=== PATIENT | female | born 1950 | race Caucasian/White ===

== ENCOUNTER → 2019-02-17 | Outpatient (CLI) | payer MEDICARE, OTHER ==
[~2019-02-17] MED LIST: AMLO5 PO; Aspir-Low81 MG PO; CHLO25 PO; DICL75ER PO; DULO60 PO; EPIN.3I IM; Flonase 0.05% N16 GM; GABA600 PO; LEVSOD100 PO; LISI20 PO; METO100ER PO; OMEPRAZOLE MAGN20 MG PO; Omeprazole20 M1 PO; PRAMIPEXOLE DIHY1 MG PO
== END | disposition home or self-care (01) ==
LOC: LAB EV 17:26 → LAB SHORT 17:26
DX: N12 Tubulo-interstitial nephritis, not specified as acute or chronic (principal)
CPT/HCPCS: 87077; 87086; 87186

== ENCOUNTER 2020-05-14 08:02 | Day surgery (SDC) | payer MEDICARE, OTHER ==
[~2020-05-14 08:02] MED LIST changes: +AMLO10 PO; -AMLO5 PO
[2020-05-14] MEDS ORDERED: LOVASTATIN20 MG PO (14:01)
--- NOTE | 2020-05-14 14:08 | NUR ---
PT RESTING IN SUPINE POSITION LEFT ANTEGRADE FEMORAL ARTERIAL SITES APPEAR SOFT NON TENDER WITH NO BLEEDING, OOZING, OR PAIN NOTED. TR BAND ON LEFT WRIST WITH AIR IN AND ARM BOARD ON SITE ALSO SOFT WITH NO BLEEDING OR OOZING. LEFT POST TIBIAL ARTERIAL SITE WITH DANNA PAD ON WITH CLEAR TEGADERM, DRESSING INTACT. PT APPEARS TO BE RESTING WITH EYES CLOSED, SNORING. NO ACUTE DISTRESS NOTED. CALL LIGHT IN REACH. VSS. WILL CONTINUE TO MONITOR.
--- NOTE | 2020-05-14 15:30 | NUR ---
PATIENT AWAKE. LEFT GROIN SITE SOFT AND NONTENDER. LEFT WRIST WITH TR BAND IN PLACE. 2CC OF AIR REMOVED. SITE REMAINS CLEAR. FINGERS ARE COOL, BUT WITH GOOD SENSATION. LEFT ANKLE DRESSING INTACT. SOFT AND NONTENDER.
--- NOTE | 2020-05-14 16:12 | NUR ---
HOB OF RAISED TO 90 DEGREES, LEFT GROIN SITE REMAINS SOFT NON TENDER, TR BAND FULLY DEFLATED. PT C/O 4/ BACK PAIN. MEDICATED PER ORDERS. WILL CONTINUE TO MONITOR.
--- NOTE | 2020-05-14 16:26 | NUR ---
PATIENT UP TO REST ROOM WITH STAND BY ASSIST.
--- NOTE | 2020-05-14 16:50 | NUR ---
PATIENT DRESSED. ARTERIAL SITES ASSESSED AND STABLE. IV SITE DCED WITH CATHETER INTACT.
--- NOTE | 2020-05-14 17:02 | NUR ---
PT VERBALIZED UNDERSTANDING OF D/C INSTRUCTIONS, PAPERWORK PROVIDED IN FOLDER. PT RIDE ARRIVES TO DRIVE HER HOME, TAKEN OUT TO PRIVATE VEHICLE VIA W/C. NO ACUTE DISTRESS NOTED. ENCOURAGED TO FOLLOW UP WITH PROVIDER SCHEDULED.
== END 2020-05-14 12:00 | disposition home or self-care (01) ==
LOC: MHTC 08:02
DX: I70.223 Atherosclerosis of native arteries of extremities with rest pain, bilateral legs (principal); I10 Essential (primary) hypertension; E78.00 Pure hypercholesterolemia, unspecified; F41.9 Anxiety disorder, unspecified; E78.5 Hyperlipidemia, unspecified; E03.9 Hypothyroidism, unspecified; K21.9 Gastro-esophageal reflux disease without esophagitis; F17.210 Nicotine dependence, cigarettes, uncomplicated; Z88.8 Allergy status to other drugs, medicaments and biological substances; Z91.018 Allergy to other foods; Z79.899 Other long term (current) drug therapy
CPT/HCPCS: 36200; 37224; 37228; 75625; 75710; 75716; 76937; 85347; 99152; 99153; C1725; C1757; C1769; C1887; C1894; C2623; C9764; J1644; J2250; J3010; J7030; J7040; Q9967

== ENCOUNTER 2020-05-26 18:44 | Emergency (ER) | payer MEDICARE, OTHER ==
[~2020-05-26] VITALS: Ht 157.5 cm; Wt 72.6 kg
[~2020-05-26 18:44] MED LIST changes: +LOVASTATIN20 MG PO
[2020-05-26 19:43] LABS: BASOPHILS ABSOLUTE AUTO 0.05 K/mm3 (0.00-0.23); BASOPHILS PERCENT AUTO 1 % (0-2); EOSINOPHILS ABSOLUTE AUTO 0.55 K/mm3 (0.00-0.68); EOSINOPHILS PERCENT AUTO 7 % (0-6); Hematocrit 43.4 % (33.0-51.0); IMMATURE GRAN ABSOLUTE AUTO 0.03 K/mm3 (0.00-0.10); IMMATURE GRAN PERCENT AUTO 0 % (0-1); LYMPHOCYTES ABSOLUTE AUTO 2.67 K/mm3 (0.84-5.20); LYMPHOCYTES PERCENT AUTO 34 % (21-46); MONOCYTES ABSOLUTE AUTO 0.56 K/mm3 (0.16-1.47); MONOCYTES PERCENT AUTO 7 % (4-13); Mean Corpuscular HGB 27.8 pg (26.0-34.0); Mean Corpuscular HGB Conc 32.3 g/dL (31.5-36.5); Mean Corpuscular Volume 86 fL (80-100); Mean Platelet Volume 8.8 fL (9.1-12.4); NEUTROPHILS ABSOLUTE AUTO 3.97 K/mm3 (1.96-9.15); NEUTROPHILS PERCENT AUTO 51 % (41-73); Platelet Count 313 K/mm3 (150-400); RDW Coefficient Variation 13.4 % (11.7-14.2); RDW Standard Deviation 41.8 fL (35.1-46.3); Red Blood Cell Count 5.03 M/mm3 (3.80-5.20); White Blood Cell Count 7.83 K/mm3 (4.00-11.30)
[2020-05-26 20:03] LABS: Alanine Aminotransfer (ALT/SGP 30 U/L (12-78); Albumin, Blood 3.6 g/dL (3.4-5.0); Albumin/Globulin Ratio 0.8 (0.8-1.8); Alk Phos 151 U/L (50-136); Anion Gap 8 mmol/L (6-16); Aspartate Aminotrans (AST/SGOT 31 U/L (12-37); Bilirubin, Total 0.4 mg/dL (0.1-1.0); Blood Urea Nitrogen 8 mg/dL (8-24); Bun/Creatinine Ratio 12.7 (12.0-20.0); CO2, Blood 28 mmol/L (21-32); Calcium, Blood 8.6 mg/dL (8.5-10.1); Chloride, Blood 102 mmol/L (98-108); Creatinine, Blood 0.63 mg/dL (0.40-1.00); Globulin, Blood 4.3 g/dL (2.2-4.0); Glomerular Filtration Rate >60 (60-); Glucose, Blood 91 mg/dL (70-99); Sodium, Blood 138 mmol/L (136-145); Total Protein, Blood 7.9 g/dL (6.4-8.2); Troponin I <0.015 ng/mL (0.000-0.040)
[2020-05-26] MEDS ORDERED: Zithromax250 MG PO ×2 (22:02→22:03)
== END 2020-05-26 22:04 | disposition home or self-care (01) ==
LOC: ER 18:44
PROVIDERS: Physician Assistant
DX: J44.1 Chronic obstructive pulmonary disease with (acute) exacerbation (principal); I10 Essential (primary) hypertension; E78.5 Hyperlipidemia, unspecified; J44.9 Chronic obstructive pulmonary disease, unspecified; E03.9 Hypothyroidism, unspecified; K21.9 Gastro-esophageal reflux disease without esophagitis; F17.200 Nicotine dependence, unspecified, uncomplicated; Z88.8 Allergy status to other drugs, medicaments and biological substances; Z79.899 Other long term (current) drug therapy
CPT/HCPCS: 36415; 71045; 80053; 84484; 85025; 93005; 93010; 94640; 96374; 96375; 99285-25; J1100; J2405

== ENCOUNTER 2020-07-14 09:52 | Day surgery (SDC) | payer MEDICARE, OTHER ==
[~2020-07-14] VITALS: Ht 160 cm; Wt 70.5 kg
[~2020-07-14 09:52] MED LIST changes: +EUTHYROX125 MCG PO; -LEVSOD100 PO; +Zithromax250 MG PO
[2020-07-14] MEDS ORDERED: ALBU8HFA2 INH (10:46)
[2020-07-14] MEDS ORDERED: TRAM50 PO (10:46)
[2020-07-14] MEDS ORDERED: Aspir 8181 MG PO (10:47)
--- NOTE | 2020-07-14 13:50 | NUR ---
PATIENT UP WALKING/PACING IN THE RECOVERY ROOM. AWAITING PROCEDURE TO START.
--- NOTE | 2020-07-14 16:32 | NUR ---
1610 PATIENT RETURNED FORM THE [facility] WITH RIGHT FOOT HEMOSTASIS OF THE RDP AND RPT. DANNA PAD AND TEGADERM ON EACH SITE. NO PAIN NOTED FROM THE PATIENT BUT THE RIGHT FOOT IS TENDER TO TOUCH. NOTIFIED EMETERIO (SIGNIFICANT OTHER) PER THE PATIENTS REQUEST THAT SHE WAS OUT OF PROCEDURE AND POTENTIAL DISCAHRGE TIME IS 1814. PATIENT IS SLEEPY. OXYGEN SAT DIPPING TO 89%, 2lbnc RESTARTED AND SIDE RAILS UP X TWO AND CALL LIGHT IN REACH. MONITOR IN PLACE. VVS.
--- NOTE | 2020-07-14 16:35 | NUR ---
PATIENT AWAKE AND SITTING UP IN THE BED. RIGHT FOOT SITES RPT ADN RDP STABLE. SOFT AND NO HEMATOMA NOTED. DINNER TRAY SERVED. PATIENT FEEDING SELF.
--- NOTE | 2020-07-14 18:18 | NUR ---
7491 PATIENT FINISHED WITH MEAL TRAY, ATE 100% SITTING UP IN THE BED.NO PAIN NOTED. DOPPLER PULSES +1 TO RPT AND RDP. DRESSING WITH SMALL AMOUNT OF BLOOD NOTED. NO FURTHER BLEEDING
--- NOTE | 2020-07-14 18:19 | NUR ---
1750 PATIENT UP AND WLAKING TO THE RESTROOM WITH WALKER. C/O SORENESS TO THE RIGHT FOOT BUT ABLE TO WALK WITHOUT DIFFICULTY. PATIENT VOIDED AND BACK TOT HE BEDSIDE. PIV TO THE LEFT HAND DISCONTINUED AND PRESSURE DRESSING APPLIED. PATIENT DRESSED SELF AND GATHERED ALL BELONGINGS. WHEELCHAIR TO THE DIAMOND ENTRANCE AND MET SIGNIFICANT OTHER. REVIEWED DISCHARGE INSTRUCTIONS WITH PATIENT AND CAREGIVER. PATIENT VERBALIZED UNDERSTANDING OF INSTRUCTIONS AND WILL CALL FOR FOLLOW UP APPOINTMENT WITH DR. MIRANDA OFFICE IN THE MORNING.
== END 2020-07-14 18:00 | disposition home or self-care (01) ==
LOC: MHTC 09:52
DX: I70.211 Atherosclerosis of native arteries of extremities with intermittent claudication, right leg (principal); I10 Essential (primary) hypertension; F41.9 Anxiety disorder, unspecified; E03.9 Hypothyroidism, unspecified; E78.5 Hyperlipidemia, unspecified; J44.9 Chronic obstructive pulmonary disease, unspecified; G89.29 Other chronic pain; M54.9 Dorsalgia, unspecified; F32.9 Major depressive disorder, single episode, unspecified; G25.81 Restless legs syndrome; K21.9 Gastro-esophageal reflux disease without esophagitis; G62.9 Polyneuropathy, unspecified; F17.210 Nicotine dependence, cigarettes, uncomplicated; Z91.018 Allergy to other foods; Z79.82 Long term (current) use of aspirin; Z79.51 Long term (current) use of inhaled steroids; Z79.899 Other long term (current) drug therapy; Z88.8 Allergy status to other drugs, medicaments and biological substances
CPT/HCPCS: 37228; 37232; 75710; 75774; 76937; 99152; 99153; C1725; C1769; C1887; C1894; J1644; J2250; J3010; J7030; J7040; J7050; Q9967

== ENCOUNTER 2023-02-13 12:19 | Emergency (ER) | payer MEDICARE, OTHER ==
[~2023-02-13] VITALS: Ht 157.5 cm; Wt 60.8 kg
[~2023-02-13 12:19] MED LIST changes: +ALBU8HFA2 INH; +Aspir 8181 MG PO; +TRAM50 PO
[2023-02-13 13:07] LABS: BASOPHILS ABSOLUTE AUTO 0.02 K/mm3 (0.00-0.23); BASOPHILS PERCENT AUTO 0 % (0-2); EOSINOPHILS ABSOLUTE AUTO 0.16 K/mm3 (0.00-0.68); EOSINOPHILS PERCENT AUTO 2 % (0-6); Hemoglobin 8.9 g/dL (11.5-16.0); IMMATURE GRAN ABSOLUTE AUTO 0.03 K/mm3 (0.00-0.10); IMMATURE GRAN PERCENT AUTO 0 % (0-1); LYMPHOCYTES PERCENT AUTO 26 % (21-46); MONOCYTES ABSOLUTE AUTO 0.38 K/mm3 (0.16-1.47); MONOCYTES PERCENT AUTO 5 % (4-13); Mean Corpuscular Volume 88 fL (80-100); Mean Platelet Volume 10.6 fL (9.1-12.4); NEUTROPHILS ABSOLUTE AUTO 5.11 K/mm3 (1.96-9.15); NEUTROPHILS PERCENT AUTO 66 % (41-73); Platelet Count 255 K/mm3 (150-400); RDW Coefficient Variation 13.4 % (11.7-14.2); RDW Standard Deviation 43.2 fL (35.1-46.3); Red Blood Cell Count 3.07 M/mm3 (3.80-5.20)
[2023-02-13 13:24] LABS: Albumin, Blood 3.3 g/dL (3.4-5.0); Bilirubin, Total 0.4 mg/dL (0.1-1.0); Bun/Creatinine Ratio 64.1 (12.0-20.0); Calcium, Blood 8.7 mg/dL (8.5-10.1); Creatinine, Blood 0.56 mg/dL (0.40-1.00); Globulin, Blood 3.3 g/dL (2.2-4.0); Potassium, Blood 3.6 mmol/L (3.5-5.5); Total Protein, Blood 6.6 g/dL (6.4-8.2)
[2023-02-13 13:32] LABS: International Normalized Ratio 0.99; Prothrombin Time Results 10.4 Sec (9.7-11.5)
[2023-02-13 16:45] VITALS: BP 106/71
== END 2023-02-13 17:00 | disposition short-term general hospital (02) ==
LOC: ER 12:19
PROVIDERS: Emergency Medicine; Physician Assistant
DX: K92.2 Gastrointestinal hemorrhage, unspecified (principal); D50.0 Iron deficiency anemia secondary to blood loss (chronic); E78.5 Hyperlipidemia, unspecified; Z85.3 Personal history of malignant neoplasm of breast; I10 Essential (primary) hypertension; J44.9 Chronic obstructive pulmonary disease, unspecified; E03.9 Hypothyroidism, unspecified; K21.9 Gastro-esophageal reflux disease without esophagitis; Z88.8 Allergy status to other drugs, medicaments and biological substances; Z91.018 Allergy to other foods; Z79.899 Other long term (current) drug therapy; Z79.82 Long term (current) use of aspirin
CPT/HCPCS: 74174; 80053; 82140; 82272; 83690; 85025; 85610; 86850; 86900; 86901; 96365-59; 96366; 96368; 96375-59; 96376-59; 99285-25; C9113; G0480; J0696; J2354; J2405; J7030; J7050; Q9967

== ENCOUNTER 2023-03-27 06:26 | Emergency (ER) | payer MEDICARE, OTHER ==
[~2023-03-27] VITALS: Ht 162.6 cm; Wt 63.5 kg
[2023-03-27 06:54] LABS: BASOPHILS ABSOLUTE AUTO 0.03 K/mm3 (0.00-0.23); BASOPHILS PERCENT AUTO 0 % (0-2); EOSINOPHILS ABSOLUTE AUTO 0.41 K/mm3 (0.00-0.68); EOSINOPHILS PERCENT AUTO 4 % (0-6); Hematocrit 27.4 % (33.0-51.0); IMMATURE GRAN ABSOLUTE AUTO 0.05 K/mm3 (0.00-0.10); IMMATURE GRAN PERCENT AUTO 1 % (0-1); LYMPHOCYTES ABSOLUTE AUTO 1.25 K/mm3 (0.84-5.20); LYMPHOCYTES PERCENT AUTO 13 % (21-46); MONOCYTES ABSOLUTE AUTO 0.64 K/mm3 (0.16-1.47); MONOCYTES PERCENT AUTO 7 % (4-13); Mean Corpuscular HGB 25.4 pg (26.0-34.0); Mean Corpuscular HGB Conc 32.8 g/dL (31.5-36.5); Mean Corpuscular Volume 77 fL (80-100); Mean Platelet Volume 9.4 fL (9.1-12.4); NEUTROPHILS ABSOLUTE AUTO 7.53 K/mm3 (1.96-9.15); NEUTROPHILS PERCENT AUTO 76 % (41-73); Platelet Count 312 K/mm3 (150-400); RDW Coefficient Variation 17.1 % (11.7-14.2); RDW Standard Deviation 48.5 fL (35.1-46.3); Red Blood Cell Count 3.54 M/mm3 (3.80-5.20); White Blood Cell Count 9.91 K/mm3 (4.00-11.30)
[2023-03-27 07:16] LABS: Albumin, Blood 3.2 g/dL (3.4-5.0); Albumin/Globulin Ratio 0.8 (0.8-1.8); Bilirubin, Total 0.4 mg/dL (0.1-1.0); Calcium, Blood 8.4 mg/dL (8.5-10.1); Creatinine, Blood 0.53 mg/dL (0.40-1.00); Total Protein, Blood 7.2 g/dL (6.4-8.2)
[2023-03-27] MEDS ORDERED: PRED20 PO (08:58)
[2023-03-27] MEDS ORDERED: AZIT250 PO (08:58)
[2023-03-27 09:05] VITALS: BP 145/80
[2023-03-28] MEDS ORDERED: ALBU90OI INH (22:32)
[2023-03-28] MEDS ORDERED: Prednisone50 MG PO (22:32)
[2023-03-28] MEDS ORDERED: Vibramycin100 MG PO (22:32)
== END 2023-03-27 09:06 | disposition home or self-care (01) ==
LOC: ER 06:26
PROVIDERS: Emergency Medicine
DX: J44.1 Chronic obstructive pulmonary disease with (acute) exacerbation (principal); E78.5 Hyperlipidemia, unspecified; I10 Essential (primary) hypertension; E03.9 Hypothyroidism, unspecified; K21.9 Gastro-esophageal reflux disease without esophagitis; Z88.8 Allergy status to other drugs, medicaments and biological substances; Z91.048 Other nonmedicinal substance allergy status; Z85.3 Personal history of malignant neoplasm of breast; Z79.82 Long term (current) use of aspirin; Z79.899 Other long term (current) drug therapy
CPT/HCPCS: 71045; 80053; 84484; 85025; 93005; 93010; 94640; 94644; 94664; 96374; 96375; 99285-25; J1885; J2405; J2930

== ENCOUNTER 2023-03-28 15:36 | Emergency (ER) | payer MEDICARE, OTHER ==
[~2023-03-28] VITALS: Ht 157.5 cm; Wt 59.4 kg
[~2023-03-28 15:36] MED LIST changes: +AZIT250 PO; +PRED20 PO
[2023-03-28 16:02] LABS: BASOPHILS ABSOLUTE AUTO 0.03 K/mm3 (0.00-0.23); BASOPHILS PERCENT AUTO 0 % (0-2); EOSINOPHILS ABSOLUTE AUTO 0.01 K/mm3 (0.00-0.68); EOSINOPHILS PERCENT AUTO 0 % (0-6); Hematocrit 25.8 % (33.0-51.0); Hemoglobin 8.2 g/dL (11.5-16.0); IMMATURE GRAN ABSOLUTE AUTO 0.12 K/mm3 (0.00-0.10); IMMATURE GRAN PERCENT AUTO 1 % (0-1); LYMPHOCYTES ABSOLUTE AUTO 1.75 K/mm3 (0.84-5.20); LYMPHOCYTES PERCENT AUTO 11 % (21-46); MONOCYTES ABSOLUTE AUTO 0.93 K/mm3 (0.16-1.47); MONOCYTES PERCENT AUTO 6 % (4-13); Mean Corpuscular HGB 24.6 pg (26.0-34.0); Mean Corpuscular HGB Conc 31.8 g/dL (31.5-36.5); Mean Corpuscular Volume 78 fL (80-100); Mean Platelet Volume 9.7 fL (9.1-12.4); NEUTROPHILS ABSOLUTE AUTO 13.21 K/mm3 (1.96-9.15); NEUTROPHILS PERCENT AUTO 82 % (41-73); NRBC ABSOLUTE 0.02 K/mm3 (0.00-0.02); NRBC Auto 0.1 /100 WBC (0.0-0.2); Platelet Count 370 K/mm3 (150-400); RDW Coefficient Variation 17.4 % (11.7-14.2); RDW Standard Deviation 48.9 fL (35.1-46.3); Red Blood Cell Count 3.33 M/mm3 (3.80-5.20); White Blood Cell Count 16.05 K/mm3 (4.00-11.30)
[2023-03-28 16:05] LABS: pH Blood Venous 7.45 (7.34-7.37)
[2023-03-28 16:06] LABS: Base Excess Venous 0.8 mmol/L; Bicarbonate Venous 25.2 mmol/L (24.0-30.0)
[2023-03-28 16:24] LABS: Albumin, Blood 3.3 g/dL (3.4-5.0); Albumin/Globulin Ratio 0.9 (0.8-1.8); Bilirubin, Total 0.4 mg/dL (0.1-1.0); Bun/Creatinine Ratio 29.5 (12.0-20.0); Calcium, Blood 8.2 mg/dL (8.5-10.1); Creatinine, Blood 0.48 mg/dL (0.40-1.00); Globulin, Blood 3.5 g/dL (2.2-4.0); Potassium, Blood 3.5 mmol/L (3.5-5.5); Total Protein, Blood 6.8 g/dL (6.4-8.2)
[2023-03-28 19:11] LABS: Adenovirus Not Detected (NOT DETECT); Bordetella pertussis Not Detected (NOT DETECT); Chlamydophila pneumoniae Not Detected (NOT DETECT); Coronavirus 229E Not Detected (NOT DETECT); Coronavirus HKU1 Not Detected (NOT DETECT); Coronavirus NL63 Not Detected (NOT DETECT); Coronavirus OC43 Not Detected (NOT DETECT); Human Metapneumovirus Not Detected (NOT DETECT); Human Rhinovirus/Enterovirus Not Detected (NOT DETECT); Influenza A/2009-H1 Not Detected (NOT DETECT); Influenza A/H1 Not Detected (NOT DETECT); Influenza A/H3 Not Detected (NOT DETECT); Influenza B Not Detected (NOT DETECT); Mycoplasma pneumoniae Not Detected (NOT DETECT); Parainfluenza Virus 1 Not Detected (NOT DETECT); Parainfluenza Virus 2 Not Detected (NOT DETECT); Parainfluenza Virus 3 Not Detected (NOT DETECT); Parainfluenza Virus 4 Not Detected (NOT DETECT); Respiratory Syncytial Virus Not Detected (NOT DETECT); SARS-Cov-2 (COVID-19), BioFire Not Detected (NOT DETECT)
[2023-03-28 19:29] LABS: Source, Urine Clean Catch
[2023-03-28 19:38] LABS: Appearance, Urine Clear (Clear); Bilirubin, Urine Neg (Neg); Blood, Urine Neg (Neg); Glucose Qualitative, Urine Neg (Neg); Ketones, Urine Neg (Neg); Leukocyte Esterase, Urine Neg (Neg); Nitrite, Urine Neg (Neg); Protein, Urine 2+ (Neg); Urobilinogen, Urine NORM (Normal); pH, Urine 6.5 (5.0-8.0)
[2023-03-28 19:43] LABS: Color, Urine Pale Yellow (P-Yellow)
[2023-03-28 19:45] LABS: Bacteria Rare /hpf; Red Blood Cells, Urine Not Seen /hpf (0-2); Squamous Epithelial Cells Few /hpf (Few); White Blood Cells, Urine 0-2 /hpf (0-5)
[2023-03-28 19:55] LABS: U Amphetamine Screen DETECTED; U Barbituate Screen Not Detected; U Benzodiazapine Screen Not Detected; U Buprenorphine Screen Not Detected; U Cannabinoids Screen Not Detected; U Cocaine Screen Not Detected; U Methadone Screen Not Detected; U Methamphetamine Screen DETECTED; U Opiates Screen Not Detected; U Oxycodone Screen Not Detected; U Phencyclidine Screen Not Detected; U Propoxyphene Screen Not Detected
[2023-03-28 20:00] VITALS: BP 131/96
[2023-03-28] MEDS ORDERED: ALBU90OI INH (22:32)
[2023-03-28] MEDS ORDERED: Vibramycin100 MG PO (22:32)
[2023-03-28] MEDS ORDERED: Prednisone50 MG PO (22:32)
== END 2023-03-29 00:08 | disposition home or self-care (01) ==
LOC: ER 15:36
PROVIDERS: Emergency Medicine; Student in an Organized Health Care Education/Training Program
DX: J44.9 Chronic obstructive pulmonary disease, unspecified (principal); R09.02 Hypoxemia; Z88.8 Allergy status to other drugs, medicaments and biological substances; Z91.018 Allergy to other foods; Z79.899 Other long term (current) drug therapy; Z79.52 Long term (current) use of systemic steroids; Z87.891 Personal history of nicotine dependence; E78.5 Hyperlipidemia, unspecified; Z85.3 Personal history of malignant neoplasm of breast; I10 Essential (primary) hypertension; E03.9 Hypothyroidism, unspecified; K21.9 Gastro-esophageal reflux disease without esophagitis; Z20.822 Contact with and (suspected) exposure to COVID-19
CPT/HCPCS: 0202U; 71046; 71260; 80053; 81001; 82272; 82803; 83880; 84484; 85025; 93005; 93010; 94640; 94664; 96365-59; 96366-59; 96367-59; 96375-59; 99285-25; A9270; J0696; J2930; J3475; Q9967

== ENCOUNTER → 2024-10-04 | Outpatient (CLI) | payer MEDICARE, OTHER ==
[~2024-10-04] MED LIST changes: +ALBU90OI INH; +Prednisone50 MG PO; +Vibramycin100 MG PO
[2024-10-04 17:43] LABS: BASOPHILS ABSOLUTE AUTO 0.03 K/mm3 (0.00-0.23); BASOPHILS PERCENT AUTO 0 % (0-2); EOSINOPHILS PERCENT AUTO 3 % (0-6); Hematocrit 37.5 % (33.0-51.0); Hemoglobin 11.3 g/dL (11.5-16.0); IMMATURE GRAN ABSOLUTE AUTO 0.01 K/mm3 (0.00-0.10); IMMATURE GRAN PERCENT AUTO 0 % (0-1); LYMPHOCYTES ABSOLUTE AUTO 1.96 K/mm3 (0.84-5.20); LYMPHOCYTES PERCENT AUTO 29 % (21-46); MONOCYTES ABSOLUTE AUTO 0.55 K/mm3 (0.16-1.47); MONOCYTES PERCENT AUTO 8 % (4-13); Mean Corpuscular HGB 22.2 pg (26.0-34.0); Mean Corpuscular HGB Conc 30.1 g/dL (31.5-36.5); Mean Corpuscular Volume 74 fL (80-100); NEUTROPHILS ABSOLUTE AUTO 4.02 K/mm3 (1.96-9.15); NEUTROPHILS PERCENT AUTO 59 % (41-73); Platelet Count 243 K/mm3 (150-400); RDW Coefficient Variation 17.6 % (11.7-14.2); RDW Standard Deviation 46.5 fL (35.1-46.3); White Blood Cell Count 6.77 K/mm3 (4.00-11.30)
[2024-10-04 19:55] LABS: Alanine Aminotransfer (ALT/SGP 18 U/L (12-78); Albumin, Blood 3.3 g/dL (3.4-5.0); Albumin/Globulin Ratio 0.8 (0.8-1.8); Alk Phos 146 U/L (50-136); Anion Gap 9 mmol/L (3-11); Aspartate Aminotrans (AST/SGOT 19 U/L (12-37); Bilirubin, Total 0.7 mg/dL (0.1-1.0); Blood Urea Nitrogen 9 mg/dL (8-24); CHOL/HDL RATIO 3.6; CO2, Blood 28 mmol/L (21-32); Calcium, Blood 8.5 mg/dL (8.5-10.1); Chloride, Blood 98 mmol/L (98-108); Cholesterol 157 mg/dL (50-200); Globulin, Blood 4.1 g/dL (2.2-4.0); Glucose, Blood 90 mg/dL (70-99); HDL Cholesterol 44 mg/dL (>39); LDL/HDL RATIO 1.9; Low Density Lipoprotein Chol 83 mg/dL (0-110); Sodium, Blood 131 mmol/L (136-145); Total Protein, Blood 7.4 g/dL (6.4-8.2); Triglycerides 148 mg/dL (30-160); Very Low Density Lipoprot Chol 29 mg/dL (6-32)
[2024-10-04 20:03] LABS: Bun/Creatinine Ratio 13.6 (12.0-20.0); Creatinine, Blood 0.66 mg/dL (0.40-1.00); Glomerular Filtration Rate 93 (60-)
== END ==
LOC: LAB 16:47 → LAB SHORT 16:47
PROVIDERS: Family Medicine
DX: I10 Essential (primary) hypertension (principal); E03.9 Hypothyroidism, unspecified; R09.02 Hypoxemia
CPT/HCPCS: 80053; 80061; 83880; 84443; 85025

== ENCOUNTER → 2025-03-23 | Outpatient (CLI) | payer MEDICARE, OTHER | LOC: LAB SHORT 16:16 → LAB 16:16 | DX: N39.0 Urinary tract infection, site not specified (principal) | CPT/HCPCS: 87077; 87086; 87186 ==